=== PATIENT | male | born 1980 | race Caucasian/White ===

== ENCOUNTER 2017-04-23 13:24 | Day surgery (SDC) | payer OTHER ==
[~2017-04-23] VITALS: Ht 182.9 cm; Wt 86.2 kg
[2017-04-23] MEDS ORDERED: NS IV 500 ML 500 ML ONE (13:26)
--- OUTSIDE RECORDS SUMMARY | 2017-04-23 13:28 | XMS REPORT ---
Author Dilan Clement [facility] Address [address] [place], [place] [id number] Care Team Providers Care It Lead Name Role Phone Dilan Cuevas PCP Unavailable Allergies and Adverse Reactions Name Reaction Notes NO KNOWN DRUG ALLERGIES Plan of Treatment Not available. Medications Active Name Start Date Estimated Completion Date SIG Comments omeprazole 20 mg oral capsule,delayed release(DR/EC) take 1 capsule (20 mg) by oral route once daily before a meal Name Start Date Expiration Date SIG Comments Tamiflu 75 mg oral capsule 04/06/2014 04/16/2014 take 1 capsule (75 mg) by oral route once daily for 10 days Anucort-HC 25 mg rectal suppository insert 1 suppository (25 mg) by rectal route 2 times per day as needed hydrocortisone 2.5 % rectal cream apply to the affected area(s) by topical route once daily as needed triamcinolone acetonide 0.5 % topical cream apply a thin layer to the affected area(s) by topical route 2 times per day Vigamox 0.5 % ophthalmic drops instill 1 drop into affected eye(s) by ophthalmic route as directed Problem List Description Status Onset Dyspepsia Active 05/17/2015 Dysphagia Active 05/17/2015 Rectal bleeding Active 05/17/2015 Hemorrhoids Active Vital Signs Date Time BP-Sys(mm[Hg] BP-Tanya(mm[Hg]) HR(bpm) RR(rpm) Temp WT HT HC BMI BSA BMI Percentile O2 Sat(%) 05/17/2015 8:17:00 AM 132 mmHg 80 mmHg 65 bpm 18 rpm 98 F 194 lbs 72 in 26.31 kg/m2 2.11 m2 11/10/2012 8:23:00 AM 126 mmHg 64 mmHg 63 bpm 18 rpm 96.8 F 182.5 lbs 72 in 24.7512 kg/m 2.0507 m 100 % Social History Name Description Comments Alcohol Use - Occasional 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 History Of Immunizations Not available. History of Past Illness Name Date of Onset Comments Hemorrhoids Allergic rhinitis Dyspepsia 05/17/2015 Dysphagia 05/17/2015 Rectal bleeding 05/17/2015 DOT Nov 10 2012 8:28AM Dyspepsia May 17 2015 8:58AM Dysphagia May 17 2015 8:58AM Rectal bleeding May 17 2015 8:58AM Hemorrhoids May 17 2015 8:58AM Payers Insurance Name Company Name Plan Name Plan Number Policy Number Policy Group Number Start Date BCBS [facility] [id number] N/A [facility] [employer] [facility] [employer] [id number] N/A [facility] [id number] N/A History of Encounters Visit Date Visit Type Provider 05/17/2015 Office visit Dilan Cuevas DO 11/10/2012 Office visit Diamond Webster APRN 07/14/2011 Office visit Dilan Cuevas DO 07/04/2011 [facility] Dilan Cuevas DO 07/03/2011 [facility] Dilan Cuevas DO
--- OUTSIDE RECORDS SUMMARY | 2017-04-23 13:28 | XMS REPORT | Continuity of Care Document ---
Author Author [facility] Address Unknown Phone Unavailable Allergies There is no data. Medications There is no data. Problems There is no data. Procedures There is no data. Results There is no data. Encounters ACCT No. Visit Date/Time Discharge Status Pt. Type Provider Facility Loc./Unit Complaint [id number] 05/17/2015 09:02:01 05/17/2015 23:59:59 CLS Outpatient Dilan Cuevas
[2017-04-23 13:30] VITALS: BP 154/93
--- NOTE | 2017-04-23 13:32 | Conscious Sedation/ASA ---
Conscious Sedation Pre-Proced Time Reviewed: 13:32 ASA Class: 2 Airway Mallampati Classification: (rampart appropriate class) I. II. III, IV Lungs Heart ASA score ASA 1: a normal healthy patient ASA 2: a patient with a mild systemic disease (mid diabetes, controlled hypertension, obesity ASA 3: a patient with a severe systemic disease that limits activity (angina , COPD, prior Myocardial infarction) ASA 4: a patient with an incapacitating disease that is a constant threat to life (CHF, renal failure) ASA 5: a moribund patient not expected to survive 24 hrs. (ruptured aneurysm) ASA 6: a declared brain patient whose organs are being harvested. For emergent operations, add the letter E after the classification Grade 1 Sedation Plan: Discussed options with patient/fam Note The patient is an appropriate candidate to undergo the planned procedure, sedation, and anesthesia. The patient immediately re-assessed prior to indication. RICARDO MILES MD Apr 23, 2017 1:32 pm
[2017-04-23] MEDS ORDERED: MIDAZOLAM 2 MG/2 ML (VERSED) VIAL ONE ×4 (13:39→13:59)
[2017-04-23] MEDS ORDERED: fentaNYL INJECTION 100 MCG/2 ML AMP ONE (13:39)
[2017-04-23] MEDS ORDERED: HURRICAINE EXT TUBE (BENZOCAINE) ONE (13:40)
[2017-04-23] MEDS ORDERED: NS IV 500 ML 500 ML IV PRN (13:45)
[2017-04-23] MEDS: fentaNYL INJECTION 100 MCG/2 ML AMP IVP PRN ×2 (13:51→13:54)
[2017-04-23] MEDS: MIDAZOLAM 2 MG/2 ML (VERSED) VIAL IVP PRN ×4 (13:53→14:00)
[2017-04-23] MEDS ORDERED: HURRICAINE EXT TUBE (BENZOCAINE) XX PRN (14:00)
--- NOTE | 2017-04-23 14:08 | Endo Procedure Record ---
Endo Procedure Report Date of Procedure Last Colonoscopy: No Apr 23, 2017 Surgeon (s) RICARDO MILES MD Post Procedure/Op Diagnosis Distal esophageal stricture Distal gastritis and duodenitis Procedure Performed EGD with balloon dilatation of esophageal stricture Description of Procedure Anesthesia Type: Conscious Sedation Specimen(s) collected/removed none Description of the Procedure indication for the procedure: This gentleman came in with impaction of food bolus in his esophagus, recalling long-standing acid reflux symptoms. He was offered prompt therapeutic endoscopy. Informed consent was obtained after reviewing the procedure in detail. Description of the procedure: He was placed in left lateral decubitus position and his vital signs were monitored. Conscious sedation was achieved using Versed and fentanyl. The flexible gastroscope was introduced down the esophagus , past the stomach, into the proximal duodenum. Findings: Esophagus: Distal stricture possibly of peptic etiology. The food impaction had resolved. This stricture was dilated to 20 mm using a balloon. Stomach: Distal gastritis without any ulceration. Duodenum: Changes of duodenitis involving the first part. He tolerated the procedure well and was taken back to the nursing area in a stable condition Impression: Food impaction due to a distal esophageal stricture. Balloon dilatation completed. Copies To: CORONA KAMARA MD, XAVIER M MD Apr 23, 2017 2:08 pm
--- NOTE | 2017-04-23 14:09 | Discharge Inst-Simple/Standard ---
Discharge Inst-Standard Discharge Medications New, Converted or Re-Newed RX: Other Patient Instructions/Follow Up Plan of Care/Instructions/FU: To take Prilosec 20 mg twice a day. Follow-up with his primary physician Activity as Tolerated: Yes Discharge Diet: Soft Diet RICARDO MILES MD Apr 23, 2017 2:09 pm
[2017-04-23 14:45] VITALS: BP 134/77
[2017-04-23 15:12] VITALS: BP 124/71
[2017-04-23 15:15] VITALS: BP 124/71
== END 2017-04-23 15:15 | disposition home or self-care (01) ==
LOC: ENDO 13:24
PROVIDERS: ATTEND Surgery
DX: K22.2 Esophageal obstruction (principal); K29.70 Gastritis, unspecified, without bleeding; K29.80 Duodenitis without bleeding; K21.9 Gastro-esophageal reflux disease without esophagitis

== ENCOUNTER 2019-04-05 05:32 | Outpatient (CLI) | payer OTHER ==
[~2019-04-05] VITALS: Ht 182 cm; Wt 84.0 kg
[2019-04-05] MEDS ORDERED: OMEP20TA33 PO (13:23)
== END 2019-04-05 13:25 | disposition home or self-care (01) ==
LOC: PREOP 05:32
PROVIDERS: ATTEND Surgery
DX: Z01.818 Encounter for other preprocedural examination (principal)

== ENCOUNTER 2019-04-12 08:45 | Day surgery (SDC) | payer OTHER ==
--- NOTE | 2019-03-30 07:12 | HISTORY AND PHYSICAL ---
DATE OF SERVICE: PROCEDURE DATE: 04/12/2019. ATTENDING PHYSICIAN: Dr. Navarrete. HISTORY OF PRESENT ILLNESS: The patient is a 38-year-old male, who was referred over to us for episodes of rectal bleeding. The patient reports that this is intermittent and has been going on for several years. He reports that he did have issues with hemorrhoids in the past and approximately 8 years ago he did undergo a formal hemorrhoidectomy. He reports that he does get some rectal pain. Does notice some bright red blood as well as maroon-colored stools and will occasionally get some blood upon wiping. He does report occasional episodes of constipation as well as diarrhea. He also reports a family history of colon cancer with his maternal grandfather having the disease. He denies any abdominal pain as well as no weight loss. PAST MEDICAL HISTORY: Hemorrhoids. PAST SURGICAL HISTORY: Left inguinal hernia repair [age] months old, laparoscopic appendectomy in 2009, hemorrhoidectomy in 2011 and EGD with balloon dilatation in 2018. ALLERGIES: None. MEDICATIONS: Prilosec OTC. SOCIAL HISTORY: Negative for smoke. Positive for chewing tobacco for 24 years. Social for alcohol. FAMILY HISTORY: Father, hypertension. Maternal grandfather, colon cancer around 85 years of age. Maternal grandmother, lung cancer and myocardial infarction. Paternal grandmother, myocardial infarction. REVIEW OF SYSTEMS: Well-nourished male in no acute distress. He is not experiencing any shortness of breath or difficulty breathing. No chest pain, palpitations or diaphoresis. No nausea, vomiting or abdominal pain. He does report alternating episodes of diarrhea as well as constipation. He does report episodes of bright red blood per rectum. No dark tarry stools. No fever or chills. No recent inadvertent weight loss. All other review of systems are negative. PHYSICAL EXAMINATION: VITAL SIGNS: Blood pressure is 160/90. Current weight is ____ at 6 foot 0. CHEST: Clear. Good breath sounds bilaterally. HEART: Regular and no murmurs. EXTREMITIES: No lower extremity edema. Negative Homans sign. HEENT: No scleral icterus. NECK: No cervical lymphadenopathy. ABDOMEN: Soft, nontender and nondistended. SKIN: Warm, dry and pink. NEUROLOGIC: Awake, alert and oriented x3. ASSESSMENT AND PLAN: A 38-year-old male with episodes of rectal bleeding as well as rectal pain, who also has a family history of colon cancer with his maternal grandfather having the disease. At this time, we will proceed with a colonoscopy. The risks and benefits of the procedure as well as the procedure and home care instructions were explained to the patient. The patient verbalized understanding of instructions and agrees to proceed as planned. Job ID: [id number] DocumentID: [id number] Dictated Date: 03/24/2019 09:25:42 Corner Block Cutter Date: 03/24/2019 10:01:40 Dictated By: ANKIT COREA APRN
[~2019-04-12] VITALS: Ht 182.9 cm; Wt 84.0 kg
[2019-04-12] VITALS (11 sets, daily range): BP systolic 104–139; BP diastolic 60–97
[~2019-04-12 08:45] MED LIST: OMEP20TA33 PO
[2019-04-12] MEDS ORDERED: NS IV 500 ML 500 ML IV PRN (08:52)
[2019-04-12] MEDS ORDERED: NS IV 500 ML 500 ML ONE (08:53)
[2019-04-12] MEDS ORDERED: fentaNYL INJECTION 100 MCG/2 ML AMP IVP ONE (09:00)
[2019-04-12] MEDS ORDERED: LIDOCAINE JELLY 2% 6 ML SYRINGE MM PRN (09:00)
[2019-04-12] MEDS ORDERED: LIDOCAINE JELLY 2% 6 ML SYRINGE ONE (09:37)
[2019-04-12] MEDS ORDERED: MIDAZOLAM 5 MG/5 ML (VERSED) VIAL ONE ×2 (09:38)
[2019-04-12] MEDS ORDERED: fentaNYL INJECTION 100 MCG/2 ML AMP ONE ×2 (09:38→09:54)
--- NOTE | 2019-04-12 09:43 | Conscious Sedation/ASA ---
Conscious Sedation Pre-Proced Time 09:00 ASA Score 2 For ASA 3 and 4: Consider anesthesia and medical clearance. Also, for patients with a history of failed moderate sedation consider anesthesia. Airway Lungs Heart ASA score ASA 1: a normal healthy patient ASA 2: a patient with a mild systemic disease (mid diabetes, controlled hypertension, obesity ASA 3: a patient with a severe systemic disease that limits activity (angina, COPD, prior Myocardial infarction) ASA 4: a patient with an incapacitating disease that is a constant threat to life (CHF, renal failure) ASA 5: a moribund patient not expected to survive 24 hrs. (ruptured aneurysm) ASA 6: a declared brain- patient whose organs are being harvested. For emergent operations, add the letter E after the classification Mallampati Classification Grade 2 Sedation Plan Analgesia, Amnesia, Plan communicated to team members, Discussed options with patient/fam, Discussed risks with patient/fam The patient is an appropriate candidate to undergo the planned procedure, sedation, and anesthesia. The patient immediately re-assessed prior to indication. JUMANA FELIZ MD Apr 12, 2019 09:43
--- NOTE | 2019-04-12 09:44 | Progress Note-Pre Operative ---
Pre-Operative Progress Note H&P Reviewed The H&P was reviewed, patient examined and no changes noted. Date Seen by Provider: Apr 12, 2019 Time Seen by Provider: 09:30 Date H&P Reviewed: Apr 12, 2019 Time H&P Reviewed: 09:00 Pre-Operative Diagnosis: rectal bleed. JUMANA FELIZ MD Apr 12, 2019 09:44
[2019-04-12] MEDS ORDERED: HYDROcodone/APAP 5 MG/325 MG (LORTAB) TAB PO PRN (09:45)
[2019-04-12] MEDS ORDERED: ACETAMINOPHEN 325 MG TABLET PO PRN (09:45)
[2019-04-12] MEDS ORDERED: morphine INJ 10 MG/ML 1ML (SYR OR VIAL) IVP PRN ×2 (09:45)
[2019-04-12] MEDS ORDERED: ONDANSETRON 4 MG/2 ML (SDV) Z0FRAN IVP PRN (09:45)
--- NOTE | 2019-04-12 09:46 | Discharge Inst-Surgical ---
D/C Lap Instructions-TRINI Follow Up Activity as tolerated High Fiber Diet 25g or more per day Avoid Alcohol, Caffeine, Spicy [place] and Acid foods. Drink 64 fluid oz or more of fluids per day. Symptoms to Report: Fever over 101 degree F, Nausea/Vomiting If any problems/questions: Contact your physician or go to Emergency Room JUMANA FELIZ MD Apr 12, 2019 09:46
[2019-04-12] MEDS: MIDAZOLAM 5 MG/5 ML (VERSED) VIAL IV PRN ×3 (09:56→10:10)
[2019-04-12] MEDS ORDERED: MIDAZOLAM 2 MG/2 ML (VERSED) VIAL ONE (10:11)
--- NOTE | 2019-04-12 10:49 | Progress Note-Post Operative ---
Post-Operative Progess Note Surgeon (s)/Tumblers Supervisor (s) Surgeon JUMANA FELIZ MD Tumblers Supervisor: none Pre-Operative Diagnosis rectal bleed. Post-Operative Diagnosis chronic stage 2 ext and int hemorrhoids. normal rectum and colon. Procedure & Operative Findings Date of Procedure 04/12/19 Procedure Performed/Findings colonoscopy Anesthesia Type cs Estimated Blood Loss Estimated blood loss (mL): minimal Specimens/Packing Specimens Removed none JUMANA FELIZ MD Apr 12, 2019 10:49
--- NOTE | 2019-04-12 17:12 | OPERATIVE REPORT ---
DATE OF SERVICE: ATTENDING PRIMARY CARE PHYSICIAN: Jayce Navarrete MD PREOPERATIVE DIAGNOSES: Rectal bleed, rectal pain. POSTOPERATIVE DIAGNOSES: Chronic stage II external and internal hemorrhoids. No fissure identified. The remainder of the colon and rectum were normal. PROCEDURE: Colonoscopy. SURGEON: Jumana Feliz MD. ANESTHESIA: Conscious sedation. ESTIMATED BLOOD LOSS: Minimal. FINDINGS: Chronic stage II external and internal hemorrhoids. No fissure identified. The remainder of the colon and rectum were normal. DISPOSITION: The patient tolerated the procedure well. INDICATIONS: The patient is a 38-year-old male who was referred over to us for rectal bleeding as well as intermittent episodes of pain upon defecation. He reports that he has had issues with hemorrhoids even as a teenager and did undergo some form of hemorrhoid resection approximately 10 years ago. He does have some rectal pain upon defecation at times. He states that his stools are formed; however, does not have any issues with constipation, normally does have a bowel movement every day. He does also report that he notices some blood per rectum on an intermittent basis. He does not report any inadvertent weight loss as well as no family history of first-degree relative with history of colon cancer. DESCRIPTION OF PROCEDURE: The patient was brought to the endoscopy suite, laid in the left lateral decubitus position. After adequate IV pain and sedative medications and conscious sedation anesthesia, digital rectal examination was performed. There was chronic stage II external and internal hemorrhoids, not actively edematous nor inflamed and no bleeding. There was no sentinel pile or fissure identified. Normal sphincter tone was felt and there were no palpable masses. Prostate gland was palpable and appeared normal. The endoscope was then intubated to the anus and rectum gently insufflated. The endoscope was then advanced through the valves of Vaz of the rectum with no polyps or any neoplasms identified. Through the sigmoid colon, there were no diverticulosis identified. We then proceeded through the remainder of the descending, transverse and ascending colon to the cecum. These segments were normal. There were no polyps or any neoplasms identified throughout the colon or rectum. The endoscope was then slowly withdrawn while taking a second look and suctioning of residual air. At the rectum, the endoscope was retroflexed again visualizing no perirectal or perianal lesions or fissures. The patient tolerated the procedure well. We feel that the majority of his symptoms are due to formed stools. Recommendation is that he add a fiber supplement on an every day on a regular basis to equal 30 grams of fiber daily as well as drink significant amounts of water to promote soft stools on a daily basis with minimal form, which showed a decrease of pressure throughout the anal canal and decrease symptomatology of hemorrhoids as well as discomfort. Job ID: [id number] DocumentID: [id number] Dictated Date: 04/12/2019 10:28:46 Stock Preparation Operator Date: 04/12/2019 17:12:01 Dictated By: JUMANA FELIZ MD
== END 2019-04-12 11:25 | disposition home or self-care (01) ==
LOC: ENDO 08:45
PROVIDERS: ATTEND Surgery
DX: K62.5 Hemorrhage of anus and rectum (principal); K62.89 Other specified diseases of anus and rectum; K64.8 Other hemorrhoids; K64.1 Second degree hemorrhoids; F17.220 Nicotine dependence, chewing tobacco, uncomplicated; Z90.89 Acquired absence of other organs; Z82.49 Family history of ischemic heart disease and other diseases of the circulatory system; Z80.0 Family history of malignant neoplasm of digestive organs